=== PATIENT | male | born 1965 | race Hispanic/Latino ===

== ENCOUNTER 2017-11-28 05:52 | Day surgery (SDC) | payer MEDICARE, OTHER ==
[2017-11-26 14:34] VITALS: BMI 36.8
[2017-11-28] MEDS ORDERED: Lidocaine 2% MPF (5 ml) Inj ONE (06:46)
[2017-11-28] MEDS ORDERED: Bupivacaine HCl 0.5% PF (30 ml) Inj ONE (06:46)
[2017-11-28 07:04] LABS: BASO # 0.1 K/uL (0.0-0.2); BASO % 0.5 % (0.0-2.0); EOS # 0.2 K/uL (0.0-0.7); HEMOGLOBIN 14.4 g/dL (12.0-18.0); LYMPH # 2.5 K/uL (1.0-4.3); MEAN CELL VOLUME 89.9 fL (80.0-94.0); MEAN CORPUSCULAR HEMOGLOBIN 30.9 pg (27.0-31.0); MEAN CORPUSCULAR HGB CONC 34.4 g/dL (33.0-37.0); MEAN PLATELET VOLUME 8.9 fL (7.2-11.7); MONO # 0.7 K/uL (0.0-0.8); MONO % 7.2 % (0.0-10.0); NEUT # 6.4 K/uL (1.8-7.0); NEUT % 65.3 % (50.0-75.0); RBC 4.66 Mil/uL (4.40-5.90); RED CELL DISTRIBUTION WIDTH 15.2 % (11.5-14.5); WHITE BLOOD COUNT 9.9 K/uL (4.8-10.8)
[2017-11-28] MEDS ORDERED: Midazolam 2 MG/2 ML VIAL ONE ×3 (07:48→08:33)
[2017-11-28] MEDS ORDERED: Propofol 10 mg/ml Inj (20 ML) ONE ×2 (07:49→08:32)
[2017-11-28] MEDS ORDERED: Vancomycin 1 gm/D5W 200 ml 1 GM/200 ML BAG IVPB ONE (07:51)
[2017-11-28] MEDS ORDERED: Lactated Ringer's 1,000 ML IV ONE (08:00)
[2017-11-28] MEDS ORDERED: Lidocaine Hydrochloride 10 ML INJ ONE (08:08)
--- NOTE | 2017-11-28 09:41 | PCM.SURG1 ---
Surgeon's Initial Post Op Note - Surgeon's Notes Surgeon: Dr. Carl Garcia DPM Liquor Clerk: Michael Olivas, PGY-2 Type of Anesthesia: General LMA, General IV, Local Anesthesia Administered By: Dr. Jasbir MD Pre-Operative Diagnosis: 1) Left plantarflexed 2nd metatarsal. 2) Left foot plantar soft tissue mass Operative Findings: See dictation Post-Operative Diagnosis: 1) Left hypertrophied 2nd metatarsal/metatarsalgia. 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 2) Left foot exciusion of plantar soft tissue mass Specimen/Specimens Removed: 1) Left 2nd metatarsal bone. 2) Left foot plantar soft tissue mass Estimated Blood Loss: EBL {In ML}: 0 Blood Products Given: N/A Drains Used: No Drains Post-Op Condition: Good Date of Surgery/Procedure: 11/28/17 Time of Surgery/Procedure: 09:20
[2017-11-28] MEDS ORDERED: Lactated Ringer's 1,000 ML IV SCH (09:45)
[2017-11-28 11:07] VITALS: BP 133/82; PULSE 88; RESP 18; TEMP 97.8; O2SAT 99
[2017-11-28] MEDS ORDERED: Oxycodone/Acetaminophen 5/325 mg Tab PO PRN (11:16)
--- NOTE | 2017-11-28 11:36 | RAD ---
PROCEDURE: Left Foot Radiographs. HISTORY: s/p left foot surgery COMPARISON: 08/16/2017 FINDINGS: BONES: There is marked interval demineralization and cortical ill definition to the 2nd metatarsal head compared a prior studies this patient with history of surgery. No hardware here is noted. Correlation is essential as per the radiographic appearance can be seen with infection/osteomyelitis here. The with additional osseous well corticated foci lateral and mostly dorsal to the hyper trophic/arthro pathic appearing 1st metatarsal-phalangeal joint also noted. JOINTS: Arthrosis as above SOFT TISSUES: Normal. OTHER FINDINGS: Achilles tendon insertional enthesophyte noted. 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 No hardware noted. Clinical correlation regarding the surgical procedure performed is essential. Comments: Findings called in to Davion Olivas DPM 's listed number at [facility] [phone], a message was left on the answering machine. Specifically where I can be reached at [facility] on 11/28/2017 at 11:25 a.m.
--- NOTE | 2017-11-30 02:30 | OP ---
PROCEDURE DATE: 11/28/2017 PREOPERATIVE DIAGNOSES: 1. Left foot second metatarsal, plantar flexed metatarsal. 2. Left plantar foot soft tissue mass. POSTOPERATIVE DIAGNOSES: 1. Left plantar flexed second metatarsal, hypertrophied. 2. Left foot plantar fibroid mass. PROCEDURES PERFORMED: 1. Left foot second metatarsal head resection. 2. Left plantar foot excision of soft tissue mass. PRIMARY SURGEON: Carl Garcia DPM. HIGH SCHOOL TUTOR: Davion Dixon, PGY-2. TYPE OF ANESTHESIA: General LMA with local. ANESTHESIA ADMINISTERED BY: Dr. Martell. SPECIMENS: 1. Left second metatarsal bone, head. 2. Left second metatarsal skin and soft tissue, plantar soft tissue mass. INDICATIONS: The patient is a 52-year-old male with the above-stated diagnoses. The patient has exhausted all conservative treatment options and is now in need of surgical intervention. The patient signed the surgical consent after careful explanation of risks, benefits, complications and potential alternatives to the proposed surgical procedures. No guarantees were either given nor implied. All patient's questions were answered to his satisfaction. PREPARATION: The patient was brought to the operating room and placed on the operating room table in a supine position. Once IV sedation was confirmed and achieved, the patient's left foot received a total of 20 mL of 1:1 mixture of 0.5% Marcaine plain to 1% lidocaine plain in a local block type fashion. At this time, it was noted that the patient's proved resistance to continuous IV sedation. At this point, the patient was converted to general LMA anesthesia. Once the patient was fully anesthetized, left ankle received a pneumatic tourniquet in the submalleolar position to the left ankle, which was set to 250 mmHg to be inflated once the procedure began. At this time, the patient's left foot and ankle were then prepped and draped in the usual sterile manner. Foot was exsanguinated, tourniquet was inflated and the procedure began. DESCRIPTION OF PROCEDURE: 1. Left foot second metatarsal head resection: Attention was then directed to the dorsal aspect of the patient's left foot where a linear longitudinal incision was made medial and parallel with the extensor digitorum longus tendon overlying the second metatarsophalangeal joint using #15 blade. This incision was then extended down through subcutaneous tissue layers with care being taken to identify avoid and retract all vital neurovascular structures. All bleeders were cauterized as encountered. At this time, the extensor digitorum longus tendon was retracted laterally with fully exposing dorsal medial aspect of second metatarsophalangeal joint capsule. At this time, a full length periosteal and capsular incision was made longitudinally using sharp dissection. Next, using a combination of sharp and blunt dissection the periosteal and capsular structures were retracted medially and laterally thus fully exposing the head of the second metatarsal, which was freed from capsule using McGlamry periosteal elevator. At this time, the second metatarsal head freed of its periosteal and capsular attachments introducing a sagittal saw, an oblique osteotomy was created parallel to the weightbearing surface of the second metatarsal overlying the cartilaginous structures. This osteotomy was directed obliquely from distal dorsal to plantar proximal. At this time, second metatarsal head was released and passed from the operative field to be sent for pathological evaluation. Noted that poor bone stock was appreciated . Second metatarsal head cartilage was glistening and pristine but friable and weak upon manipulation. At this time, surgical site was evaluated and no rough sharp edges were appreciated. Surgical site was then flushed with copious amounts of sterile saline. Full thickness skin closure was performed using 4-0 nylon in a simple suture type fashion. 2: Left foot plantar soft tissue mass excision: Attention was then directed to the plantar aspect of the patient's left forefoot, where hypertrophied thickened epidermal and dermal tissue was appreciated. Using an 18-gauge needle, mass was palpated and was noted to enter and communicate with the previous void of the excised second metatarsal head, noting that there was continuous pressure point secondary to the second metatarsal head anatomical position. At this time, an approximately 2.5 cm linear semi-elliptical incision was made circumferential to this hypertrophied region, which was approximately 0.8 cm in width at largest margin. The incision was made using a #15 blade full thickness down to the level of subcutaneous tissue. Semi-elliptical skin island with underlying thickened dermal tissue was excised and passed off the operative field to be sent for pathological evaluation. At this time, surgical site was then flushed with copious amounts of sterile saline. Skin was reapproximated using 4-0 Vicryl in retention suture type fashion with interrupting simple sutures. Surgical sites were then dressed with Xeroform, 4 x 4 gauze, Kaila, Kerlix and Coban. POSTOPERATIVE CONDITION: The patient tolerated the anesthesia and procedures well and was escorted to the recovery room with vital signs stable and neurovascular status intact to the left foot with capillary refill time returned to all digits promptly. The patient had no complaints or complications. The patient will follow up with Dr. Garcia in his office on an outpatient basis. Davion Olivas DPM Carl Garcia DPM
== END 2017-11-28 10:45 | disposition home or self-care (01) ==
LOC: C.SDS 05:52
PROVIDERS: ATTEND Podiatrist
DX: M21.6X2 Other acquired deformities of left foot (principal); M89.372 Hypertrophy of bone, left ankle and foot; B07.0 Plantar wart
CPT/HCPCS: 11422; 28112; 36415; 73630; 82948; 85025; 88304; 88307; J2250; J2704; J3010; J3370; J7120